=== PATIENT | male | born 1970 | race Caucasian/White ===

== ENCOUNTER 2019-04-22 14:44 | Emergency (ER) | payer MEDICARE, SELFPAY ==
[2019-04-22 14:45] VITALS: BP 157/107; PULSE 95; RESP 17; TEMP 36.7; O2SAT 94; BMI 39.6
--- NOTE | 2019-04-22 15:01 | ED.VIS.GEN ---
History of Present Illness Chief Complaint: Hyperglycemia Informant: Patient Onset: Days Context: Gradual Onset Timing: Continuous Current Severity: Moderate Maximum Severity: Moderate Narrative: The patient is a 48-year-old male with medical history significant for recent diagnosis of [id number] diabetes presents to the emergency department elevated blood sugar. The patient states that he was diagnosed as a diabetic last month. He was given prescriptions for metformin and pravastatin, but never got them filled. He states he had some cough with some sputum. He went to an outside emergency department was diagnosed bronchitis. He was put on steroids and since then, his blood sugars have been very high. He was seen at his primary care today and sent in for further evaluation. He does admit to increased urination and increased thirst. He denies any chest pain. He denies any weakness or lightheadedness. He is not been nauseated. Prior similar symptoms: No Recent Illness/Hospitalization: No Past Medical History - Allergies and Home Meds Allergies/Adverse Reactions: Allergies No Known Allergies Allergy (Verified 04/22/19 14:45) Primary Care Physician: Sarah Garcia MD [Primary Care Provider] - Prior records reviewed: Yes Past Medical History: - - [id number] diabetes, depression Surgical History: noncontributory Review of Systems General: Denies: Chills, Fever, Sweats Eyes: Denies: Visual changes - bilaterally, Diplopia ENT: Denies: Rhinorrhea, Sore throat Cardiovascular: Denies: Chest pain, Palpitations Respiratory: Denies: Dyspnea, Cough, Dyspnea on exertion Gastrointestinal: Denies: Abdominal pain, Nausea, Vomiting, Diarrhea, Melena, Hematochezia Genitourinary: Denies: Dysuria, Hematuria, Frequency Musculoskeletal: Denies: Back pain, Extremity Pain Skin: Denies: Rash, Wounds Neurological: Denies: Headache, Weakness, Numbness Endocrine: Reports: Polyuria, Polydipsia Physical Exam Vital Signs/Narrative: Vital Signs Temp Pulse Resp BP Pulse Ox 04/22/19 14:45 98.1 F 95 17 157/107 H 94 Inital Vital Signs reviewed: Yes General: Well nourished, Well developed, No Acute Distress Head: Normocephalic, Atraumatic Eyes: Perrl, EOMI ENT: Moist mucous membranes, No rhinorrhea Neck: Supple, Nontender Cardiovascular: Regular rate, Regular rhythm, No murmurs Respiratory: No distress, CTA bilaterally, Chest nontender Abdomen: Soft, Nontender, Nondistended, Normal bowel sounds Back: Nontender, Normal Inspection Extremities: Nontender, No edema Skin: Normal color, No rash Neurological: Alert, Oriented x3, Cranial nerves II-XII grossly intact, Normal Strength, Normal Sensation Psychological: Normal affect, Normal Mood Diagnostic/Tx/Re-eval Abnormal Lab Results 04/22/19 04/22/19 04/22/19 15:20 15:20 15:36 WBC 13.2 H RBC 5.63 Hgb 15.8 Hct 47.8 MCV 84.9 MCH 28.1 MCHC 33.1 RDW Std Deviation 38.7 RDW Coeff of Mary 12.5 Plt Count 353 MPV 9.6 Immature Gran % (Auto) 0.500 Neut % (Auto) 71.3 H Lymph % (Auto) 18.5 L [place] % (Auto) 7.6 Eos % (Auto) 1.4 Baso % (Auto) 0.7 Absolute Neuts (auto) 9.4 H Absolute Lymphs (auto) 2.45 Nucleated RBC % 0 Sodium 129 L Potassium 4.6 Chloride 95 L Carbon Dioxide 29.0 Anion Gap 5 BUN 20 H Creatinine 1.22 Estim Creat Clear Calc 85.16 Est GFR (MDRD) Af Amer 81 Est GFR (MDRD) Non-Af 67 BUN/Creatinine Ratio 16.4 Glucose 547 H* Calcium 9.1 Total Bilirubin 0.70 AST 58 H ALT 83 H Alkaline Phosphatase 110 Total Protein 8.5 H Albumin 3.4 Globulin 5.1 H Albumin/Globulin Ratio 0.7 L POC Glucose > 500 H* 04/22/19 17:02 WBC RBC Hgb Hct MCV MCH MCHC RDW Std Deviation RDW Coeff of Mary Plt Count MPV Immature Gran % (Auto) Neut % (Auto) Lymph % (Auto) [place] % (Auto) Eos % (Auto) Baso % (Auto) Absolute Neuts (auto) Absolute Lymphs (auto) Nucleated RBC % Sodium Potassium Chloride Carbon Dioxide Anion Gap BUN Creatinine Estim Creat Clear Calc Est GFR (MDRD) Af Amer Est GFR (MDRD) Non-Af BUN/Creatinine Ratio Glucose Calcium Total Bilirubin AST ALT Alkaline Phosphatase Total Protein Albumin Globulin Albumin/Globulin Ratio POC Glucose 403 H - Medical Decision Making The patient is a new onset diabetic that presents to the emergency department with elevated blood sugar. The patient was recently on steroids and has been off them. He has not started his metformin yet. Metabolic work-up was pursued. Kidney function is unremarkable. The patient was given fluids and insulin. His sugar has trended down nicely. He is feeling improved. I have no suspicion for DKA. He has been off the steroids and I do not feel that he will need long-term insulin at this point. The patient is comfortable with this plan of care and will be discharged home. Impression 1. Hyperglycemia ED Disposition - Plan for ED Patient: Instructions: ED Diabetic Hyperglycemia Referrals: Sarah Garcia MD [Primary Care Provider] -
[2019-04-22] MEDS: 0.9% Normal Saline 1,000 ML 1000 ML IV ×2 (15:38→17:04)
[2019-04-22 15:39] LABS: Absolute Lymphocyte Count 2.45 X10^3/uL (0.83-4.51); Absolute Neutrophil Count 9.4 X10^3/uL (2.0-7.7); Basophil# 0.09 X10^3/uL; Basophil% 0.7 % (0-1); Eosinophil# 0.19 X10^3/uL; Eosinophils% 1.4 % (0-5); Hematocrit 47.8 % (40-54); Hemoglobin 15.8 g/dL (13.0-16.5); Lymphocyte # 2.45 X10^3/ul (4.0); Lymphocyte % 18.5 % (19-41); Mean Corp Hgb Conc 33.1 g/dL (32-36); Mean Corpuscular Hgb 28.1 pg (27.0-32.0); Mean Corpuscular Volume 84.9 fL (80-94); Mean Platelet Vol. 9.6 fl (6.2-12.0); Monocyte% 7.6 % (0-10); NRBC Flagged by Analyzer 0 % (0-5); Neutrophil # 9.42 X10^3/uL (2.7-7.7); Neutrophil % 71.3 % (47-70); Platelet Count 353 K/mm3 (150-450); RBC Distribution Width CV 12.5 % (11.6-14.6); RBC Distribution Width SD 38.7 fl (35.1-43.9); Red Blood Count 5.63 M/mm3 (4.6-6.2); White Blood Count 13.2 K/mm3 (4.4-11.0)
[2019-04-22 15:45] LABS: Bedside Glucose > 500 mg/dL (70-110)
[2019-04-22 15:49] LABS: ALB/GLOB Ratio 0.7 RATIO (0.9-2.4); AST(SGOT) 58 U/L (15-37); Alanine Aminotransfer ALT/SGPT 83 U/L (16-61); Albumin, Serum 3.4 g/dL (3.2-5.0); Alkaline Phosphatase 110 U/L (45-117); Anion Gap 5 (5-15); BUN 20 mg/dL (7-18); BUN/Creat Ratio 16.4 RATIO (10-20); Calcium,Total 9.1 mg/dL (8.5-10.1); Chloride 95 mmol/L (98-107); Creatinine, Serum 1.22 mg/dL (0.70-1.30); EST Glomerular Filtration Rate 67 mL/min (>60); Est Glom Filt Rate - Afr Amer 81 mL/min (>60); Estimated Creatinine Clearance 85.16 ml/min; Globulin 5.1 g/dL (2.2-4.2); Glucose 547 mg/dL (74-106); Potassium 4.6 mmol/L (3.5-5.1); Protein, Total 8.5 g/dL (6.4-8.2); Sodium Level 129 mmol/L (136-145)
[2019-04-22] MEDS: Insulin Lispro 100 UNIT/ML INSULN.PEN 16 UNIT SC (15:49)
[2019-04-22 15:52] VITALS: TEMP 37.5
[2019-04-22 17:11] LABS: Bedside Glucose 403 mg/dL (70-110)
[2019-04-22 17:41] VITALS: BP 124/70; PULSE 87; RESP 13; O2SAT 98
[2019-04-22 18:22] VITALS: BP 141/84; PULSE 72; RESP 15; O2SAT 98
== END 2019-04-22 18:23 | disposition home or self-care (01) ==
LOC: ED 15:16
PROVIDERS: Emergency Provider Emergency Medicine; PCP Internal Medicine
DX: E11.65 Type 2 diabetes mellitus with hyperglycemia (principal); Z79.84 Long term (current) use of oral hypoglycemic drugs
CPT/HCPCS: 80053; 82962; 85025; 96360; 96372; 99285; J7030; A4216